=== PATIENT | female | born 1965 | race Caucasian/White ===

== ENCOUNTER 2019-07-23 08:20 | Emergency (ER) | payer OTHER ==
[~2019-07-23] VITALS: Ht 149.9 cm; Wt 46.0 kg
[2019-07-23 08:30] VITALS: BP 92/63
[2019-07-23 09:22] VITALS: BP 92/63
== END 2019-07-23 09:24 | disposition home or self-care (01) ==
LOC: MED 08:20
DX: K94.23 Gastrostomy malfunction (principal); Z43.1 Encounter for attention to gastrostomy
CPT/HCPCS: 74240; 99283; Q0092